=== PATIENT | female | born 1945 | race Caucasian/White ===

== ENCOUNTER 2016-04-24 18:05 | Emergency (ER) | payer MEDICARE, MEDICAID ==
[2016-04-24] MEDS ORDERED: ONDANSETRON HCL 4 MG/2 ML VIAL IV ONE (18:16)
[2016-04-24] MEDS ORDERED: NS 1,000 ML IV ONE (18:16)
--- NOTE | 2016-04-24 18:16 | EDPRACDOC ---
- General Information Chief Complaint: Nausea,Vomiting,Diarrhea Stated Complaint: NAUSEA/VOMITING Time Seen by Provider: 04/24/16 18:13 Home Medications: Home Medications Alogliptin Musa/Pioglitazone [Alogliptin-Pioglit 25-30 mg Tb] 1 each PO DAILY Dapagliflozin/Metformin HCl [Xigduo Xr 10 mg-1,000 mg Tab] 1 each PO DAILY 04/24 Ondansetron [Zofran Odt] 4 mg PO TID PRN #10 tab.rapdis 04/24/16 Allergies/Adverse Reactions: Allergies Allergy/AdvReac Type Severity Reaction Status Date / Time No Known Drug Allergies Allergy Unknown Verified 04/24/16 18:38 - History of Present Illness Onset: 2 WEEKS HPI: PT COMPLAINS OF N/V/D "SINCE ", COMPLAINS OF ACHING PAIN IN LLQ OF ABDOMEN, PT COMPLAINS OF GENERALIZED WEAKNESS, NO FEVER OR CHILLS, NO CHEST PAIN OR SOBR. PT STATES THAT SHE STARTED 2 NEW DIABETES MEDS RECENTLY IS UNSURE IF SYMPTOMS RELATED TO THAT. Symptoms Occured: Reports: Spontaneous Duration: Reports: Intermittent Emesis: Reports: Food Particles Recent: Reports: None Pain Quality: Reports: Aching Pain Severity: Mild Pain Location: Reports: LLQ History of: Denies: Abdominal Surgery, UTI, Ectopic, PID, Urolithiasis, Similar Pain (dx) Relevant History of: Denies: Abdominal Surgery, Diabetes, Contact Exposure, Hydrocephalus, HIV, Immunosuppression, Irritable Bowel Disease, Cystic Fibrosis , Lactose Intolerance, None, O Associated Signs & Symptoms: Reports: Nausea, Vomiting, Diarrhea. Denies: Frequency, Vaginal Bleeding, Hematemesis, Anorexia, Melena, Dysuria, Fever, Urgency, Hematuria, Chills, Vaginal Discharge Oral Intake: Decreased Urinary Output: Normal ED Past Medical History - History Reviewed Yes Nurses notes reviewed and agree except as marked - Patient Medical History Systemic History: Reports: Diabetes - Social Medical History Smoking Status: Never smoker ETOH: None Substance Abuse: None Lives With: Alone Lives In: Home EDM Review of Systems - Review of Systems Constitutional: Fatigue, Weakness. negative: Chills, Fever Eyes: negative: Blurred Vision, Double Vision Ears: negative: Drainage Throat: negative: Pain Nose: negative: Congestion, Discharge Respiratory: negative: Cough, Shortness of Breath, Wheezing Cardiovascular: negative: Chest Pain, Palpitations Gastrointestinal: Diarrhea, Nausea, Pain, Vomiting Genitourinary: negative: Dysuria, Frequency Neurological: Weakness. negative: Dizziness, Headache, Numbness Musculoskeletal: No Symptoms Reported Integumentary: No Symptoms Reported - Physical Exam Constitutional: Alert (Awake), No apparent distress Oriented to: Time, Person, Place Last recorded Vital Signs: Oxygen Pulse Oxygen Saturation O2 Device Oxygen Flow Rate Fraction of Inspired Oxygen ( FIO2) - HEENT Head: Normal ( normocephalic) Eye Exam: Normal (PERRL, EOMI, Sclera white) Oropharynx: Normal (Pharynx:Moist without exudate,Gums-no swelling) Tympanic Membrane: Normal ENT EAC: Normal TMJ: Normal Nose: No Symptoms Reported (septum midline) Neck: Normal (FROM, trachea at midline) - Respiratory/Cardiovascular Respiratory: Normal - CTA (BBS clear to auscultation without adventitious sounds ) Cardiovascular: Normal (RRR without murmur, gallop or rub) - GI Auscultation: Decreased Palpation: Normal (Soft,No rebound or guarding, non distended) Tenderness: Mild, LLQ. negative: Guarding, Rebound, Rigidity Steen's Sign: Negative - Musculoskeletal Back: Normal (Non-Tender) Extremities: Normal (Normal tone, Pulses 2+ No cyanosis or edema, FROM) - Integumentary Skin: Normal, Warm, Dry Lymphatics: Normal (no adenopathy) - Neurologic Memory Impaired: Normal Motor Function: Normal (Normal tone, Pulses 2+ No cyanosis or edema, FROM) Cranial Nerve: Normal (CN II-X11 intact sensation, strength 5/5) Cerebellar: Normal Mood Description: Normal Perception: Normal - Differential Diagnosis Bowel obstruction, Diarrhea Bacterial, Diverticular disease, Gastritis, Gastroenteritis, IBD, Pancreatitis, Urinary tract infection, Urolithiasis - Re-evaluation Re-evaluation 1 Re-evaluation Time: 21:47 (TOLERATING ICE CHIPS NO VOMITING) - Results 04/24/16 18:20 04/24/16 18:20 04/24/16 21:40 Laboratory Results - last 24 hr 04/24/16 04/24/16 04/24/16 18:20 18:20 19:18 WBC 12.5 H RBC 4.98 Hgb 14.1 Hct 41.7 MCV 84 MCH 28.2 MCHC 33.7 RDW 13.1 Plt Count 209 MPV 10.0 Neut % (Auto) 82.1 H Lymph % (Auto) 11.2 L [place] % (Auto) 6.1 Eos % (Auto) 0.1 Baso % (Auto) 0.5 Absolute Neuts (auto) 10.25 H Absolute Lymphs (auto) 1.38 Sodium 135 L Potassium 3.6 Chloride 87 L Carbon Dioxide 25 Anion Gap 27 H BUN 86 H Creatinine 1.70 H Estimated GFR (MDRD) 30 L Glucose 183 H Calculated Osmolality 291 H Calcium 10.2 Total Bilirubin 1.1 AST 35 ALT 47 Alkaline Phosphatase 60 Total Protein 7.9 Albumin 4.5 Lipase 169 Urine Color Yellow Urine Clarity Clear Urine pH 6.0 Ur Specific [place] 1.015 Urine Protein 1+ H Urine Glucose (UA) 3+ H Urine Ketones 2+ H Urine Occult Blood 2+ H Urine Nitrite Neg Urine Bilirubin Neg Urine Urobilinogen <2.0 Ur Leukocyte Esterase Neg Urine WBC 0-2 Ur Epithelial Cells Occ Urine Bacteria 1+ H Urine Mucus Occ - Diagnostic Imaging CT ABD/PELVIS Image interpreted by: Radiologist CT ABDOMEN AND PELVIS WITHOUT CONTRAST TECHNIQUE: Multidetector CT imaging of the abdomen and pelvis was performed following the standard protocol without IV contrast. COMPARISON: None. FINDINGS: Lower chest: The lung bases are clear acute process. The heart is normal in size. Coronary artery calcifications are noted. No pericardial effusion. Moderate-sized hiatal hernia. Hepatobiliary: No obvious hepatic lesions without contrast. No intrahepatic biliary dilatation. Pancreas: No mass, inflammation or ductal dilatation. Spleen: Normal size. No focal lesions. Adrenals/Urinary Tract: The adrenal glands and kidneys are unremarkable. No renal, ureteral or bladder calculi or mass. Moderate air in the bladder could be from recent catheterization or instrumentation. Recommend clinical correlation. Stomach/Bowel: The stomach, duodenum, small bowel and colon are grossly normal without oral contrast. Fibrofatty infiltrative changes involving the right colon likely due to remote or chronic inflammatory bowel disease. No acute inflammation is identified. The terminal ileum is normal. The appendix is normal. Vascular/Lymphatic: No mesenteric or retroperitoneal mass or adenopathy. The aorta is normal in caliber. Scattered atherosclerotic calcifications. Reproductive: The uterus and ovaries are normal. Other: No pelvic mass or adenopathy. No free pelvic fluid collections. No inguinal mass or adenopathy. Small periumbilical abdominal wall hernia containing fat. No ascites. Musculoskeletal: No significant bony findings. Moderate degenerative changes involving the spine. IMPRESSION: 1. No acute abdominal/pelvic findings, mass lesions or lymphadenopathy. 2. Fibrofatty infiltrative changes involving the right colon likely due to remote inflammatory bowel disease. 3. Moderate air noted in the bladder. This is likely due to recent catheterization. 4. Hiatal hernia. 5. Coronary artery calcifications. - Additional Information FAMILY NOW AT BEDSIDE STATES THAT PT HAS HAD N/V SINCE INCREASING DIABETES MEDS , ADVISED FAMILY TO RETURN TO PREVIOUS DOSE AND FOLLOW UP WITH PCP IN THE MORNING. Decision Time to Discharge: 21:49 - Departure Disposition: Home Condition: Stable Final Diagnosis: Dehydration Nausea and vomiting Qualifiers: Vomiting type: unspecified Vomiting Intractability: non-intractable Qualified Code(s): R11.2 - Nausea with vomiting, unspecified Instructions: Acute Nausea and Vomiting (ED) Education/Counseling Given To: Patient Education/Counseling Given Regarding: Diagnosis, Treatment, Prognosis, Follow Up Referrals: Ally Duff MD [Primary Care Provider] - One Week Prescriptions: Ondansetron [Zofran Odt] 4 mg PO TID PRN #10 tab.rapdis PRN Reason: Nausea/Vomiting Additional Instructions: DECREASE YOUR DIABETES MEDICATION DOSE BACK TO PREVIOUS DOSE, CONTACT YOUR DOCTOR IN THE MORNING TO ADJUST YOUR MEDICATIONS.
[2016-04-24 18:37] LABS: AUTOMATED BASOPHIL 0.5 % (0-2); AUTOMATED EOSINOPHIL 0.1 % (0-5); AUTOMATED LYMPH 11.2 % (17-44); AUTOMATED MONOCYTE 6.1 % (3-10); AUTOMATED NEUTROPHIL 82.1 % (45-76)
[2016-04-24 18:45] VITALS: TEMP 97.4; BMI 23.6
[2016-04-24 18:47] LABS: BLOOD UREA NITROGEN 86 MG/DL (7-17); CALCIUM 10.2 MG/DL (8.4-10.2); CALCULATED OSMOLALITY 291 MOs/Kg (270-290); CHLORIDE 87 mEq/L (98-107); GLUCOSE 183 MG/DL (70-99); SODIUM LEVEL 135 mEq/L (137-146); TOTAL PROTEIN 7.9 G/DL (6.3-8.2)
[2016-04-24 19:44] LABS: LEUKOCYTES/URINE NEG (NEGATIVE); NITRITE/URINE NEG (NEGATIVE); URINE OCCULT BLOOD 2+ (NEG/TRACE); WBC/URINE 0-2 (0-5)
[2016-04-24] MEDS ORDERED: Pharmacy Review for Metformin - IV Contrast Given SCH (20:00)
--- NOTE | 2016-04-24 21:23 | DIRPT ---
CLINICAL DATA: Lower abdominal pain, nausea, vomiting and progressive weakness for 2 weeks EXAM: CT ABDOMEN AND PELVIS WITHOUT CONTRAST TECHNIQUE: Multidetector CT imaging of the abdomen and pelvis was performed following the standard protocol without IV contrast. COMPARISON: None. FINDINGS: Lower chest: The lung bases are clear acute process. The heart is normal in size. Coronary artery calcifications are noted. No pericardial effusion. Moderate-sized hiatal hernia. Hepatobiliary: No obvious hepatic lesions without contrast. No intrahepatic biliary dilatation. Pancreas: No mass, inflammation or ductal dilatation. Spleen: Normal size. No focal lesions. Adrenals/Urinary Tract: The adrenal glands and kidneys are unremarkable. No renal, ureteral or bladder calculi or mass. Moderate air in the bladder could be from recent catheterization or instrumentation. Recommend clinical correlation. Stomach/Bowel: The stomach, duodenum, small bowel and colon are grossly normal without oral contrast. Fibrofatty infiltrative changes involving the right colon likely due to remote or chronic inflammatory bowel disease. No acute inflammation is identified. The terminal ileum is normal. The appendix is normal. Vascular/Lymphatic: No mesenteric or retroperitoneal mass or adenopathy. The aorta is normal in caliber. Scattered atherosclerotic calcifications. Reproductive: The uterus and ovaries are normal. Other: No pelvic mass or adenopathy. No free pelvic fluid collections. No inguinal mass or adenopathy. Small periumbilical abdominal wall hernia containing fat. No ascites. Musculoskeletal: No significant bony findings. Moderate degenerative changes involving the spine. IMPRESSION: 1. No acute abdominal/pelvic findings, mass lesions or lymphadenopathy. 2. Fibrofatty infiltrative changes involving the right colon likely due to remote inflammatory bowel disease. 3. Moderate air noted in the bladder. This is likely due to recent catheterization. 4. Hiatal hernia. 5. Coronary artery calcifications. Electronically Signed By: Lasha Castellon M.D. On: 04/24/2016 21:21
[2016-04-24 21:24] VITALS: PULSE 88
[2016-04-24 21:56] VITALS: BP 136/64
== END 2016-04-24 22:15 | disposition home or self-care (01) ==
LOC: ED 18:05
DX: E86.0 Dehydration (principal); R11.2 Nausea with vomiting, unspecified; E11.9 Type 2 diabetes mellitus without complications; R10.32 Left lower quadrant pain
CPT/HCPCS: 36415; 74176; 80053; 81001; 83690; 85025; 96361; 96374; 99284; J2405